=== PATIENT | female | born 1995 | race Caucasian/White ===

== ENCOUNTER 2018-10-01 22:46 | Inpatient (IN) | payer BC ==
[2018-10-02] MEDS ORDERED: Lidocaine 1% 50 ML MDV INJECT PRN (00:09)
[2018-10-02] MEDS ORDERED: Methylergonovine 0.2 MG/1 ML Amp IM PRN (00:09)
[2018-10-02] MEDS ORDERED: Nalbuphine 10 MG/1 ML Vial IVPUSH PRN (00:09)
[2018-10-02] MEDS ORDERED: Sodium Chloride 0.9% 10 ML Syringe FLUSH PRN (00:09)
[2018-10-02] MEDS ORDERED: Water For Irrigation,Sterile 1,000 ML Container IRR PRN (00:09)
[2018-10-02] MEDS ORDERED: Carboprost Tromethamine 250 MCG/1 ML Amp IM PRN (00:09)
[2018-10-02] MEDS ORDERED: Misoprostol 200 MCG Tab PO PRN (00:09)
[2018-10-02] MEDS ORDERED: Sodium Chloride 0.9% 2.5 ML Syringe FLUSH PRN (00:09)
[2018-10-02] MEDS ORDERED: Ondansetron 4 MG/2 ML SDV IV PRN (00:09)
[2018-10-02] MEDS ORDERED: Tranexamic Acid 1,000 MG in Sodium Chloride 0.9% 100 ML IV PRN (00:09)
[2018-10-02] MEDS ORDERED: Butorphanol 1 MG/ML SDV IVPUSH PRN (00:09)
[2018-10-02] MEDS ORDERED: Terbutaline 1 MG/ML SDV SUBCUT PRN (00:09)
[2018-10-02] MEDS ORDERED: Oxytocin/0.9 % Sodium Chloride 30 UNIT/500 ML BAG IV SCH (00:15)
[2018-10-02] MEDS: Lactated Ringers 1,000 ML IV SCH ×3 (03:05→05:36)
--- NOTE | 2018-10-02 03:49 | PCM.PREANE ---
Preanesthetic Assessment - Anesthesia/Transfusion/Family Hx Anesthesia History: No Prior Anesthesia Transfusion History: No Prior Transfusion(s) Intubation History: Unknown - Review of Systems General: No Symptoms Pulmonary: No Symptoms Cardiovascular: No Symptoms Gastrointestinal: No Symptoms Neurological: No Symptoms Other: Reports: None - Physical Assessment Height: 5 ft 6 in Weight: 83.915 kg ASA Class: 2 Mental Status: Alert & Oriented x3 Airway Class: Mallampati = 2 Dentition: Reports: Normal Dentition Thyro-Mental Finger Breadths: 3 Mouth Opening Finger Breadths: 3 ROM/Head Extension: Full Lungs: Clear to Auscultation, Normal Respiratory Effort Cardiovascular: Regular Rate, Regular Rhythm - Lab Values: Laboratory Last Values WBC 12.80 K/uL (4.0-11.0) H 10/02/18 00:29 RBC 4.07 M/uL (4.30-5.90) L 10/02/18 00:29 Hgb 11.2 g/dL (12.0-16.0) L 10/02/18 00:29 Hct 33.8 % (36.0-46.0) L 10/02/18 00:29 MCV 83.0 fL (80.0-98.0) 10/02/18 00:29 MCH 27.5 pg (27.0-32.0) 10/02/18 00:29 MCHC 33.1 g/dL (31.0-37.0) 10/02/18 00:29 RDW Std Deviation 41.7 fl (28.0-62.0) 10/02/18 00:29 RDW Coeff of Anna Marie 14 % (11.0-15.0) 10/02/18 00:29 Plt Count 269 K/uL (150-400) 10/02/18 00:29 MPV 9.70 fL (7.40-12.00) 10/02/18 00:29 Nucleated RBC % 0.0 /100WBC 10/02/18 00:29 Nucleated RBCs # 0 K/uL 10/02/18 00:29 Blood Type B POSITIVE 10/02/18 00:29 Antibody Screen NEGATIVE 10/02/18 00:29 - Allergies Allergies/Adverse Reactions: Allergies Allergy/AdvReac Type Severity Reaction Status Date / Time acetaminophen [From Vicodin] Allergy Unknown Unknown Verified 10/02/18 03:49 hydrocodone [From Vicodin] Allergy Unknown Unknown Verified 10/02/18 03:49 Sulfa (Sulfonamide Allergy Diarrhea Verified 10/02/18 03:24 Antibiotics) feminine hygiene products Allergy Unknown Unknown Uncoded 10/02/18 03:49 sour candy Allergy Unknown Unknown Uncoded 10/02/18 03:49 - Acknowledgements Anesthesia Type Planned: Epidural Pt an Appropriate Candidate for the Planned Anesthesia: Yes Alternatives and Risks of Anesthesia Discussed w Pt/Guardian: Yes Pt/Guardian Understands and Agrees with Anesthesia Plan: Yes PreAnesthesia Questionnaire - Past Health History Medical/Surgical History: Denies Medical/Surgical History HEENT History: Reports: None Cardiovascular History: Reports: None Respiratory History: Reports: None Gastrointestinal History: Reports: GERD Genitourinary History: Reports: None 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 Para: 1 LMP (Approximate): Musculoskeletal History: Reports: None Neurological History: Reports: None Psychiatric History: Reports: None Endocrine/Metabolic History: Reports: None Hematologic History: Reports: None Immunologic History: Reports: None Oncologic (Cancer) History: Reports: None Dermatologic History: Reports: None - Infectious Disease History Infectious Disease History: Reports: None - SUBSTANCE USE Smoking Status *Q: Former Smoker Second Hand Smoke Exposure: No Recreational Drug Use History: No - CURRENT (IN HOUSE) MEDS Current Meds: Current Medications Butorphanol Tartrate (Stadol) 1 mg IVPUSH Q1H PRN PRN Reason: Pain Carboprost Tromethamine (Hemabate Ds) 250 mcg IM ASDIRECTED PRN PRN Reason: Post Hemorrhage Tranexamic Acid 1,000 mg/ (Sodium Chloride) 110 mls @ 660 mls/hr IV ONETIME PRN PRN Reason: Bleeding Lactated Ringer's (Ringers, Lactated) 1,000 mls @ 150 mls/hr IV ASDIRECTED ELLY Last Admin: 10/02/18 03:41 Dose: 150 mls/hr Oxytocin/Sodium Chloride (Oxytocin 30 Unit/500 Ml-Ns) 30 unit in 500 mls @ 999 mls/hr IV TITRATE ELLY Oxytocin/Sodium Chloride (Oxytocin 30 Unit/500 Ml-Ns) 30 unit in 500 mls @ 2 mls/hr IV TITRATE ELLY; Protocol Lidocaine HCl (Xylocaine 1%) 50 ml INJECT ONETIME PRN PRN Reason: Laceration repair Methylergonovine Maleate (Methergine) 0.2 mg IM ASDIRECTED PRN PRN Reason: Post Hemorrhage Misoprostol (Cytotec) 200 mcg PO ONETIME PRN PRN Reason: Post Hemorrhage Nalbuphine HCl (Nubain) 10 mg IVPUSH Q1H PRN PRN Reason: Pain (severe 7-10) Ondansetron HCl (Zofran) 4 mg IV Q6H PRN PRN Reason: Nausea/Vomiting Sodium Chloride (Saline Flush) 10 ml FLUSH ASDIRECTED PRN PRN Reason: Keep Vein Open Sodium Chloride (Saline Flush) 2.5 ml FLUSH ASDIRECTED PRN PRN Reason: Keep Vein Open Sterile Water (Sterile Water For Irrigation) 1,000 ml IRR ASDIRECTED PRN PRN Reason: delivery Terbutaline Sulfate (Brethine) 0.25 mg SUBCUT ASDIRECTED PRN PRN Reason: Tacysystole
[2018-10-02] MEDS ORDERED: Lidocaine HCl/EPINEPHrine 5 ML IJ ONE (03:51)
[2018-10-02] MEDS ORDERED: Bupivacaine 0.25% 10 ML SDV ONE (04:38)
[2018-10-02] MEDS: Oxytocin/0.9 % Sodium Chloride 30 UNIT/500 ML BAG IV SCH ×2 (12:26→20:00)
[2018-10-02] MEDS ORDERED: Witch Hazel Medicated Pads 40/Jar TOP PRN (13:01)
[2018-10-02] MEDS ORDERED: oxyCODONE 5 MG Tab PO PRN (13:01)
[2018-10-02] MEDS ORDERED: Docusate Sodium 100 MG Cap PO PRN (13:01)
[2018-10-02] MEDS ORDERED: Acetaminophen 500 MG Tab PO PRN (13:01)
[2018-10-02] MEDS ORDERED: Ibuprofen 400 MG Tab PO PRN (13:01)
[2018-10-02] MEDS ORDERED: Bisacodyl 10 MG Supp RECTAL PRN (13:01)
[2018-10-02] MEDS ORDERED: Lanolin 100% Cream 7 GM Tube TOP PRN (13:01)
[2018-10-02] MEDS ORDERED: Benzocaine/Menthol 20%-0.5% Spray 78 GM Cannister TOP PRN (13:01)
--- NOTE | 2018-10-02 13:08 | PCM.DEL ---
L & D Note - General Info Date of Service: 10/02/18 Mother's Due Date: 10/02/18 - Delivery Note Labor: Augmented by Oxytocin Delivery Outcome: Livebirth Infant Delivery Method: Spontaneous Vaginal Delivery-Single Presentation: Left Occiput Anterior (KATHARINA) Nuchal Cord: None Anesthesia Type: Epidural Amniotic Fluid Description: Clear Episiotomy Type: None Laceration: Periurethral Placenta: Intact Cord: 3 Vessels Estimated Blood Loss: 200 Resuscitation Needed: No Score 1 min: 7 Score 5 min: 8 Delivery Comments (Free Text/Narrative):: Live female delivered 1225 , 7/8 , weight 4080g - General Info Date of Service: 10/02/18 - Patient Data Weight - Most Recent: 83.915 kg Lab Results Last 24 Hours: Laboratory Results - last 24 hr 10/02/18 10/02/18 Range/Units 00:29 00:29 WBC 12.80 H (4.0-11.0) K/uL RBC 4.07 L (4.30-5.90) M/uL Hgb 11.2 L (12.0-16.0) g/dL Hct 33.8 L (36.0-46.0) % MCV 83.0 (80.0-98.0) fL MCH 27.5 (27.0-32.0) pg MCHC 33.1 (31.0-37.0) g/dL RDW Std Deviation 41.7 (28.0-62.0) fl RDW Coeff of Anna Marie 14 (11.0-15.0) % Plt Count 269 (150-400) K/uL MPV 9.70 (7.40-12.00) fL Nucleated RBC % 0.0 /100WBC Nucleated RBCs # 0 K/uL Blood Type B POSITIVE Antibody Screen NEGATIVE Med Orders - Current: Current Medications Carboprost Tromethamine (Hemabate Ds) 250 mcg IM ASDIRECTED PRN PRN Reason: Post Hemorrhage Tranexamic Acid 1,000 mg/ (Sodium Chloride) 110 mls @ 660 mls/hr IV ONETIME PRN PRN Reason: Bleeding Lactated Ringer's (Ringers, Lactated) 1,000 mls @ 150 mls/hr IV ASDIRECTED ELLY Last Admin: 10/02/18 05:36 Dose: 150 mls/hr Oxytocin/Sodium Chloride (Oxytocin 30 Unit/500 Ml-Ns) 30 unit in 500 mls @ 999 mls/hr IV TITRATE ELLY Last Admin: 10/02/18 12:26 Dose: 999 mls/hr Oxytocin/Sodium Chloride (Oxytocin 30 Unit/500 Ml-Ns) 30 unit in 500 mls @ 2 mls/hr IV TITRATE ELLY; Protocol Last Titration: 10/02/18 12:26 Dose: 0 munits/min, 0 mls/hr Lidocaine HCl (Xylocaine 1%) 50 ml INJECT ONETIME PRN PRN Reason: Laceration repair Methylergonovine Maleate (Methergine) 0.2 mg IM ASDIRECTED PRN PRN Reason: Post Hemorrhage Misoprostol (Cytotec) 200 mcg PO ONETIME PRN PRN Reason: Post Hemorrhage Ondansetron HCl (Zofran) 4 mg IV Q6H PRN PRN Reason: Nausea/Vomiting Sodium Chloride (Saline Flush) 10 ml FLUSH ASDIRECTED PRN PRN Reason: Keep Vein Open Sodium Chloride (Saline Flush) 2.5 ml FLUSH ASDIRECTED PRN PRN Reason: Keep Vein Open Sterile Water (Sterile Water For Irrigation) 1,000 ml IRR ASDIRECTED PRN PRN Reason: delivery Terbutaline Sulfate (Brethine) 0.25 mg SUBCUT ASDIRECTED PRN PRN Reason: Tacysystole Discontinued Medications Bupivacaine HCl (Sensorcaine-Mpf 0.25%) Confirm Administered Dose 10 ml .ROUTE .STK-MED ONE Stop: 10/02/18 04:39 Butorphanol Tartrate (Stadol) 1 mg IVPUSH Q1H PRN PRN Reason: Pain Fentanyl/Bupivacaine HCl (Gmicruwz-Mekcq-Qs 2 Mcg/Ml-0.125%) Confirm Administered Dose 100 mls @ as directed .ROUTE .STK-MED ONE Stop: 10/02/18 03:52 Lidocaine/Epinephrine (Lidocaine 1.5%-Epi 1:200,000) Confirm Administered Dose 5 ml IJ .STK-MED ONE Stop: 10/02/18 03:52 Nalbuphine HCl (Nubain) 10 mg IVPUSH Q1H PRN PRN Reason: Pain (severe 7-10) - Problem List & Annotations (1) Vaginal delivery SNOMED Code(s): 712478575 Code(s): O80 - ENCOUNTER FOR FULL-TERM UNCOMPLICATED DELIVERY Status: Acute Current Visit: Yes - Problem List Review Problem List Initiated/Reviewed/Updated: Yes - My Orders Last 24 Hours: My Active Orders 10/02/18 13:01 Patient Status [ADT] Routine May Shower [RC] ASDIRECTED Up ad Jessica [RC] ASDIRECTED Vital Signs [RC] PER UNIT ROUTINE Acetaminophen [Tylenol Extra Strength] 1,000 mg PO Q4H PRN Acetaminophen [Tylenol Extra Strength] 500 mg PO Q4H PRN Benzocaine/Menthol [Dermoplast Pain Relief 20%-0.5% [place]] 78 gm TOP ASDIRECTED PRN Bisacodyl [Dulcolax] 10 mg RECTAL ONETIME PRN Docusate Sodium [Colace] 100 mg PO BID PRN Ibuprofen [Motrin] 400 mg PO Q4H PRN Ibuprofen [Motrin] 800 mg PO Q6H PRN Lanolin [Lansinoh HPA] See Dose Instructions TOP ASDIRECTED PRN Witch Concepcion [Tucks] 1 pad TOP ASDIRECTED PRN oxyCODONE 5 mg PO Q2H PRN Assess Lochia [WOMSER] Per Unit Routine Assess Uterine Involution [WOMSER] Per Unit Routine Peripheral IV Discontinue [OM.PC] Routine Resuscitation Status Routine 10/03/18 05:11 HEMOGLOBIN/HEMATOCRIT,HH [HEME] Timed
[2018-10-02] MEDS: Ibuprofen 800 MG Tab PO PRN (16:33)
[2018-10-02] MEDS: Acetaminophen 500 MG Tab PO PRN (20:00)
--- NOTE | 2018-10-03 03:32 | OR ---
SURGEON: RAVI THOMAS DATE OF PROCEDURE: 10/02/2018 PREOPERATIVE DIAGNOSIS: A 23-year-old, 2, para 1, at 40 weeks, admitted with spontaneous rupture of membranes, group B Streptococcus negative. POSTOPERATIVE DIAGNOSIS: A 23-year-old, 2, para 1, at 40 weeks, admitted with spontaneous rupture of membranes, group B Streptococcus negative. PROCEDURE: Normal spontaneous vaginal delivery. ESTIMATED BLOOD LOSS: 200. INTRAVENOUS FLUID: Pitocin and NS. ANESTHESIA: Epidural. NOTES AND FINDING: Was a live female delivered at 12:25. scores 7 and 8. Weight is 4030 g. BRIEF HISTORY ABOUT THE PATIENT: She came in complaining of leakage of fluid, rupture of membranes, and contractions. She was found to be about 4 cm dilated. She may change to 5. When I reexamined her, she was about 5 to 6. Pitocin was started. She had a normal labor curve. She became fully dilated. With the patient being fully dilated, she was encouraged to push. DESCRIPTION OF PROCEDURE: With good patient effort, baby delivered the head subsequently by the anterior and posterior shoulder, body of the was delivered. The baby was placed on the maternal abdomen. Delayed cord clamping was observed. The placenta was delivered via controlled cord traction. After delivery of the placenta, the perineum was inspected. A small periurethral laceration was noted which was hemostatic. The perineum was washed. All instrument and pad counts were correct x2. The patient was left in the Labor and Delivery room in stable condition. The patient received Pitocin, NS after delivery of the anterior shoulder. GALI RYAN /[id number] MTDReg
--- NOTE | 2018-10-03 06:19 | PCM48HPAN ---
Post Anesthesia Note - EVALUATION WITHIN 48HRS OF ANESTHETIC Vital Signs in Normal Range: Yes Patient Participated in Evaluation: Yes Respiratory Function Stable: Yes Airway Patent: Yes Cardiovascular Function Stable: Yes Hydration Status Stable: Yes Pain Control Satisfactory: Yes Nausea and Vomiting Control Satisfactory: Yes Mental Status Recovered: Yes Resp Rate: 18 - COMMENTS/OBSERVATIONS Free Text/Narrative:: The patient had no apparent anesthetic complications at this time. Denies headache at this time, n/v, and there were no apparent anesthetic complications at this time.
[2018-10-03] MEDS: Ibuprofen 800 MG Tab PO PRN (07:54)
--- NOTE | 2018-10-03 08:13 | PCM.PNPP ---
<Bryanna Alegre - Last Filed: 10/03/18 08:10> - General Info Date of Service: 10/03/18 Functional Status: Reports: Pain Controlled, Tolerating Diet, Ambulating, Urinating - Review of Systems General: Denies: Fever, Weakness, Fatigue Pulmonary: Denies: Shortness of Breath, Pleuritic Chest Pain, Cough Cardiovascular: Denies: Chest Pain, Palpitations, Dyspnea on Exertion Gastrointestinal: Denies: Abdominal Pain Genitourinary: Denies: Dysuria - General Info Date of Service: 10/03/18 - Patient Data Vital Signs - Most Recent: Last Vital Signs Temp 36.2 C 10/03/18 03:55 Pulse 100 10/03/18 03:55 Resp 18 10/03/18 06:19 BP 115/56 L 10/03/18 03:55 Pulse Ox 98 10/03/18 03:55 Weight - Most Recent: 185 lb Lab Results - Last 24 Hours: Laboratory Results - last 24 hr 10/03/18 Range/Units 04:43 Hgb 9.0 L (12.0-16.0) g/dL Hct 27.7 L (36.0-46.0) % Med Orders - Current: Current Medications Acetaminophen (Tylenol Extra Strength) 500 mg PO Q4H PRN PRN Reason: Pain Acetaminophen (Tylenol Extra Strength) 1,000 mg PO Q4H PRN PRN Reason: Pain Last Admin: 10/02/18 20:00 Dose: 1,000 mg Benzocaine/Menthol (Dermoplast Pain Relief 20%-0.5% [place]) 78 gm TOP ASDIRECTED PRN PRN Reason: Perineal Comfort Measure Bisacodyl (Dulcolax) 10 mg RECTAL ONETIME PRN PRN Reason: Constipation Carboprost Tromethamine (Hemabate Ds) 250 mcg IM ASDIRECTED PRN PRN Reason: Post Hemorrhage Docusate Sodium (Colace) 100 mg PO BID PRN PRN Reason: Constipation Emollient Ointment (Lansinoh Hpa) 0 gm TOP ASDIRECTED PRN PRN Reason: Sore Nipples Tranexamic Acid 1,000 mg/ (Sodium Chloride) 110 mls @ 660 mls/hr IV ONETIME PRN PRN Reason: Bleeding Lactated Ringer's (Ringers, Lactated) 1,000 mls @ 150 mls/hr IV ASDIRECTED ELLY Last Admin: 10/02/18 05:36 Dose: 150 mls/hr Oxytocin/Sodium Chloride (Oxytocin 30 Unit/500 Ml-Ns) 30 unit in 500 mls @ 999 mls/hr IV TITRATE ELLY Last Admin: 10/02/18 20:00 Dose: 999 mls/hr Oxytocin/Sodium Chloride (Oxytocin 30 Unit/500 Ml-Ns) 30 unit in 500 mls @ 2 mls/hr IV TITRATE ELLY; Protocol Last Titration: 10/02/18 12:26 Dose: 0 munits/min, 0 mls/hr Ibuprofen (Motrin) 400 mg PO Q4H PRN PRN Reason: Pain Ibuprofen (Motrin) 800 mg PO Q6H PRN PRN Reason: Pain Last Admin: 10/03/18 07:54 Dose: 800 mg Lidocaine HCl (Xylocaine 1%) 50 ml INJECT ONETIME PRN PRN Reason: Laceration repair Methylergonovine Maleate (Methergine) 0.2 mg IM ASDIRECTED PRN PRN Reason: Post Hemorrhage Misoprostol (Cytotec) 200 mcg PO ONETIME PRN PRN Reason: Post Hemorrhage Ondansetron HCl (Zofran) 4 mg IV Q6H PRN PRN Reason: Nausea/Vomiting Oxycodone HCl (Oxycodone) 5 mg PO Q2H PRN PRN Reason: Pain Sodium Chloride (Saline Flush) 10 ml FLUSH ASDIRECTED PRN PRN Reason: Keep Vein Open Sodium Chloride (Saline Flush) 2.5 ml FLUSH ASDIRECTED PRN PRN Reason: Keep Vein Open Sterile Water (Sterile Water For Irrigation) 1,000 ml IRR ASDIRECTED PRN PRN Reason: delivery Terbutaline Sulfate (Brethine) 0.25 mg SUBCUT ASDIRECTED PRN PRN Reason: Tacysystole Witch Concepcion (Tucks) 1 pad TOP ASDIRECTED PRN PRN Reason: comfort care Discontinued Medications Bupivacaine HCl (Sensorcaine-Mpf 0.25%) Confirm Administered Dose 10 ml .ROUTE .STK-MED ONE Stop: 10/02/18 04:39 Last Admin: 10/02/18 20:25 Dose: Not Given Butorphanol Tartrate (Stadol) 1 mg IVPUSH Q1H PRN PRN Reason: Pain Fentanyl/Bupivacaine HCl (Ucaerefh-Cujmm-Ow 2 Mcg/Ml-0.125%) Confirm Administered Dose 100 mls @ as directed .ROUTE .STK-MED ONE Stop: 10/02/18 03:52 Last Admin: 10/02/18 20:25 Dose: Not Given Lidocaine/Epinephrine (Lidocaine 1.5%-Epi 1:200,000) Confirm Administered Dose 5 ml IJ .STK-MED ONE Stop: 10/02/18 03:52 Last Admin: 10/02/18 20:25 Dose: Not Given Nalbuphine HCl (Nubain) 10 mg IVPUSH Q1H PRN PRN Reason: Pain (severe 7-10) - Interaction Disposition, : in Room with Family Infant Interaction: Holding Infant Infant Feeding: Breastfed Infant; Nursed Well Support Person: - Recovery Exam Fundal Tone: Firm Fundal Level: At Umbilicus Fundal Placement: Midline Lochia Amount: Scant Lochia Color: Rubra/Red Perineum Description: Intact, Minimal Bruising/Swelling Episiotomy/Laceration: None Bladder Status: Voiding Urinary Elimination: Voided - Exam General: Alert, Oriented Neck: Supple Lungs: Clear to Auscultation, Normal Respiratory Effort Cardiovascular: Regular Rate, Regular Rhythm GI/Abdominal Exam: Normal Bowel Sounds, Soft, Non-Tender, No Distention Extremities: Normal Inspection, Normal Range of Motion, Non-Tender (trace), Normal Capillary Refill, Pedal Edema Skin: Warm, Dry, Intact - Problem List & Annotations (1) Vaginal delivery SNOMED Code(s): 666175233 Code(s): O80 - ENCOUNTER FOR FULL-TERM UNCOMPLICATED DELIVERY Status: Acute Current Visit: Yes - Problem List Review Problem List Initiated/Reviewed/Updated: Yes - Assessment Assessment:: PPD# 1 s/p , Minimal pain and lochia. Breast feeding well. Discharge home today. - Plan Plan:: Discharge home today. Pelvic rest for 6 weeks. Can use OTC ibuprofen/tylenol as needed for pain. Instructed patient to call if she develops fever greater than 101 or bleeding through a large pad an hour. F/U with [facility] in 6 weeks. <Maria Elena Roberts - Last Filed: 10/03/18 09:06> - Patient Data Vital Signs - Most Recent: Last Vital Signs Temp 36.2 C 10/03/18 03:55 Pulse 100 10/03/18 03:55 Resp 18 10/03/18 06:19 BP 115/56 L 10/03/18 03:55 Pulse Ox 98 10/03/18 03:55 Lab Results - Last 24 Hours: Laboratory Results - last 24 hr 10/03/18 Range/Units 04:43 Hgb 9.0 L (12.0-16.0) g/dL Hct 27.7 L (36.0-46.0) % Med Orders - Current: Current Medications Acetaminophen (Tylenol Extra Strength) 500 mg PO Q4H PRN PRN Reason: Pain Acetaminophen (Tylenol Extra Strength) 1,000 mg PO Q4H PRN PRN Reason: Pain Last Admin: 10/02/18 20:00 Dose: 1,000 mg Benzocaine/Menthol (Dermoplast Pain Relief 20%-0.5% [place]) 78 gm TOP ASDIRECTED PRN PRN Reason: Perineal Comfort Measure Bisacodyl (Dulcolax) 10 mg RECTAL ONETIME PRN PRN Reason: Constipation Carboprost Tromethamine (Hemabate Ds) 250 mcg IM ASDIRECTED PRN PRN Reason: Post Hemorrhage Docusate Sodium (Colace) 100 mg PO BID PRN PRN Reason: Constipation Emollient Ointment (Lansinoh Hpa) 0 gm TOP ASDIRECTED PRN PRN Reason: Sore Nipples Tranexamic Acid 1,000 mg/ (Sodium Chloride) 110 mls @ 660 mls/hr IV ONETIME PRN PRN Reason: Bleeding Lactated Ringer's (Ringers, Lactated) 1,000 mls @ 150 mls/hr IV ASDIRECTED ELLY Last Admin: 10/02/18 05:36 Dose: 150 mls/hr Oxytocin/Sodium Chloride (Oxytocin 30 Unit/500 Ml-Ns) 30 unit in 500 mls @ 999 mls/hr IV TITRATE ELLY Last Admin: 10/02/18 20:00 Dose: 999 mls/hr Oxytocin/Sodium Chloride (Oxytocin 30 Unit/500 Ml-Ns) 30 unit in 500 mls @ 2 mls/hr IV TITRATE [facility], [facility]; Protocol Last Titration: 10/02/18 12:26 Dose: 0 munits/min, 0 mls/hr Ibuprofen (Motrin) 400 mg PO Q4H PRN PRN Reason: Pain Ibuprofen (Motrin) 800 mg PO Q6H PRN PRN Reason: Pain Last Admin: 10/03/18 07:54 Dose: 800 mg Lidocaine HCl (Xylocaine 1%) 50 ml INJECT ONETIME PRN PRN Reason: Laceration repair Methylergonovine Maleate (Methergine) 0.2 mg IM ASDIRECTED PRN PRN Reason: Post Hemorrhage Misoprostol (Cytotec) 200 mcg PO ONETIME PRN PRN Reason: Post Hemorrhage Ondansetron HCl (Zofran) 4 mg IV Q6H PRN PRN Reason: Nausea/Vomiting Oxycodone HCl (Oxycodone) 5 mg PO Q2H PRN PRN Reason: Pain Sodium Chloride (Saline Flush) 10 ml FLUSH ASDIRECTED PRN PRN Reason: Keep Vein Open Sodium Chloride (Saline Flush) 2.5 ml FLUSH ASDIRECTED PRN PRN Reason: Keep Vein Open Sterile Water (Sterile Water For Irrigation) 1,000 ml IRR ASDIRECTED PRN PRN Reason: delivery Terbutaline Sulfate (Brethine) 0.25 mg SUBCUT ASDIRECTED PRN PRN Reason: Tacysystole Witch Concepcion (Tucks) 1 pad TOP ASDIRECTED PRN PRN Reason: comfort care Discontinued Medications Bupivacaine HCl (Sensorcaine-Mpf 0.25%) Confirm Administered Dose 10 ml .ROUTE .STK-MED ONE Stop: 10/02/18 04:39 Last Admin: 10/02/18 20:25 Dose: Not Given Butorphanol Tartrate (Stadol) 1 mg IVPUSH Q1H PRN PRN Reason: Pain Fentanyl/Bupivacaine HCl (Ovlybjhj-Ukhpq-Cf 2 Mcg/Ml-0.125%) Confirm Administered Dose 100 mls @ as directed .ROUTE .STK-MED ONE Stop: 10/02/18 03:52 Last Admin: 10/02/18 20:25 Dose: Not Given Lidocaine/Epinephrine (Lidocaine 1.5%-Epi 1:200,000) Confirm Administered Dose 5 ml IJ .STK-MED ONE Stop: 10/02/18 03:52 Last Admin: 10/02/18 20:25 Dose: Not Given Nalbuphine HCl (Nubain) 10 mg IVPUSH Q1H PRN PRN Reason: Pain (severe 7-10) - My Orders Last 24 Hours: My Active Orders 10/03/18 Breakfast Regular Diet [DIET] - Assessment Assessment:: Patient seen and evaluated independently- agree with above - Plan Plan:: Patient may be discharged home today. S/S of depression were reviewed and encouraged to call with any concerns
[2018-10-03] MEDS: Acetaminophen 500 MG Tab PO PRN (09:58)
== END 2018-10-03 15:40 | disposition home or self-care (01) | DRG 560 ==
LOC: MW.OBCHECK 22:46 → MW.OB 22:53 → MW.OBCHECK 10-02 00:10 → MW.OB 10-02 00:10 → OBSVTOIN 10-02 12:25 → MW.OB 10-02 21:50
PROVIDERS: ADMIT Obstetrics & Gynecology; ATTEND Obstetrics & Gynecology
PROC: 10E0XZZ Delivery of Products of Conception, External Approach (ICD-10-PCS; principal; 2018-10-02)
PROC: 10H07YZ Insertion of Other Device into Products of Conception, Via Natural or Artificial Opening (ICD-10-PCS; principal; 2018-10-02)
PROC: 00HU33Z Insertion of Infusion Device into Spinal Canal, Percutaneous Approach (ICD-10-PCS; 2018-10-02)
PROC: 3E0R3BZ Introduction of Anesthetic Agent into Spinal Canal, Percutaneous Approach (ICD-10-PCS; 2018-10-02)
DX: O99.344 Other mental disorders complicating childbirth (principal); F41.9 Anxiety disorder, unspecified; F32.9 Major depressive disorder, single episode, unspecified; O71.82 Other specified trauma to perineum and vulva; Z37.0 Single live birth; Z3A.39 39 weeks gestation of pregnancy; O99.62 Diseases of the digestive system complicating childbirth; K21.9 Gastro-esophageal reflux disease without esophagitis; Z88.5 Allergy status to narcotic agent; Z88.2 Allergy status to sulfonamides; Z88.8 Allergy status to other drugs, medicaments and biological substances; Z91.018 Allergy to other foods
CPT/HCPCS: 36415; 51702; 59025; 59409; 85014; 85018; 85027; 86850; 86900; 86901; A9270-GY; J2590; J7120

== ENCOUNTER 2019-12-11 10:06 | Emergency (ER) | payer BC, OTHER ==
--- NOTE | 2019-12-11 10:41 | EDM.PDOC ---
ED HPI GENERAL MEDICAL PROBLEM - General Chief Complaint: Lower Extremity Injury/Pain Stated Complaint: INJURED RT FOOT Time Seen by Provider: 12/11/19 10:38 Source of Information: Reports: Patient History Limitations: Reports: No Limitations - History of Present Illness INITIAL COMMENTS - FREE TEXT/NARRATIVE: HISTORY AND PHYSICAL: History of present illness: Patient is a 24-year-old female presents to the ED with complaint of right foot injury. Patient states she fell off of a hover board last night landing on her foot wrong. She states she was initially able to put weight on her foot then this morning was unable to walk on it. She denies proximal ankle or knee injury or head injury. Review of systems: As per history of present illness and below otherwise all systems reviewed and negative. Past medical history: As per history of present illness and as reviewed below otherwise noncontributory. Surgical history: As per history of present illness and as reviewed below otherwise noncontributory. Social history: No reported history of drug or alcohol abuse. Family history: As per history of present illness and as reviewed below otherwise noncontributory. Physical exam: General: Patient sitting comfortably in no acute distress and nontoxic appearing HEENT: Atraumatic, normocephalic, pupils reactive, negative for conjunctival pallor or scleral icterus, mucous membranes moist, throat clear, neck supple, nontender, trachea midline. No meningeal signs. Extremities: No obvious swelling or deformity, skin is intact. Pain to palpation over the 4th and 5th metatarsals. negative for cords or calf pain. Neurovascular unremarkable. Neuro: Awake, alert, oriented. Cranial nerves II through XII unremarkable. Cerebellum unremarkable. Motor and sensory unremarkable throughout. Exam nonfocal. Notes: Diagnostics: x-ray right foot Therapeutics: post op shoe crutches Prescriptions: Diclofenac Impression: Right foot injury Plan: 1. Ice, elevate, and motrin or tylenol as needed 2. Follow up with orthopedics or podiatry, please call the number provided to schedule an appointment 3. Return to ED as needed as discussed Definitive disposition and diagnosis as appropriate pending reevaluation and review of above. right foot Pain Score (Numeric/FACES): 6 - Related Data Allergies Allergy/AdvReac Type Severity Reaction Status Date / Time acetaminophen [From Vicodin] Allergy Unknown Unknown Verified 12/11/19 10:44 hydrocodone [From Vicodin] Allergy Unknown Unknown Verified 12/11/19 10:44 Sulfa (Sulfonamide Allergy Diarrhea Verified 12/11/19 10:44 Antibiotics) feminine hygiene products Allergy Unknown Unknown Uncoded 12/11/19 10:44 sour candy Allergy Unknown Unknown Uncoded 12/11/19 10:44 Home Meds: Home Meds Diclofenac Sodium [Voltaren] 75 mg PO BIDMEALS #20 tab.cr 12/11/19 [Rx] Past Medical History - Past Health History Medical/Surgical History: Denies Medical/Surgical History HEENT History: Reports: None Cardiovascular History: Reports: None Respiratory History: Reports: None Gastrointestinal History: Reports: GERD Genitourinary History: Reports: None [employer] History: Reports: Musculoskeletal History: Reports: None Neurological History: Reports: None Psychiatric History: Reports: None Endocrine/Metabolic History: Reports: None Hematologic History: Reports: None Immunologic History: Reports: None Oncologic (Cancer) History: Reports: None Dermatologic History: Reports: None - Infectious Disease History Infectious Disease History: Reports: None Social & Family History - Caffeine Use Caffeine Use: Reports: Coffee, Soda Caffeine Use Comment: Just drink coffee occassionally Review of Systems - Review of Systems Review Of Systems: Comprehensive ROS is negative, except as noted in HPI. ED EXAM, GENERAL - Physical Exam Exam: See Below (see dictation) Course - Vital Signs Last Recorded V/S: Last Vital Signs Temp 97.3 F 12/11/19 10:10 Pulse 84 12/11/19 10:10 Resp 16 12/11/19 10:10 BP 117/74 12/11/19 10:10 Pulse Ox 96 12/11/19 10:10 - Orders/Labs/Meds Orders: Active Orders 24 hr Category Date Time Status DME for Discharge [COMM] Stat Oth 12/11/19 10:57 Ordered Departure - Departure Time of Disposition: 11:01 Disposition: Home, Self-Care 01 Condition: Good Clinical Impression: Right foot injury - Discharge Information Prescriptions: Diclofenac Sodium [Voltaren] 75 mg PO BIDMEALS #20 tab.cr Referrals: PCP,None [Primary Care Provider] - Forms: ED Department Discharge Additional Instructions: The following information is given to patients seen in the emergency department who are being discharged to home. This information is to outline your options for follow-up care. We provide all patients seen in our emergency department with a follow-up referral. The need for follow-up, as well as the timing and circumstances, are variable depending upon the specifics of your emergency department visit. If you don't have a primary care physician on staff, we will provide you with a referral. We always advise you to contact your personal physician following an emergency department visit to inform them of the circumstance of the visit and for follow-up with them and/or the need for any referrals to a consulting specialist. The emergency department will also refer you to a specialist when appropriate. This referral assures that you have the opportunity for follow-up care with a specialist. All of these measure are taken in an effort to provide you with optimal care, which includes your follow-up. Under all circumstances we always encourage you to contact your private physician who remains a resource for coordinating your care. When calling for follow-up care, please make the office aware that this follow-up is from your recent emergency room visit. If for any reason you are refused follow-up, please contact the [facility] Emergency Department at and asked to speak to the emergency department charge nurse. [facility] [address] [place] [address] [place] [address] [facility] Professional [facility] [address] [place] [address], [address] [place] [address] [facility] [address] [place] [address] 1. Ice, elevate, and motrin or tylenol as needed 2. Follow up with orthopedics or podiatry, please call the number provided to schedule an appointment 3. Return to ED as needed as discussed Sepsis Event Note - Focused Exam Vital Signs: Vital Signs Temp Pulse Resp BP Pulse Ox 12/11/19 10:10 97.3 F 84 16 117/74 96 Date Exam was Performed: 12/11/19 Time Exam was Performed: 11:01 - My Orders Last 24 Hours: My Active Orders 12/11/19 10:57 DME for Discharge [COMM] Stat - Assessment/Plan Last 24 Hours: My Active Orders 12/11/19 10:57 DME for Discharge [COMM] Stat
--- NOTE | 2019-12-11 10:53 | CR ---
Right foot: 2 views of the right foot were obtained. Comparison: No prior right foot study is available. No fracture or other bony abnormality is identified. Impression: 1. No abnormality is appreciated on 2 view right foot exam. Diagnostic code #1 This report was dictated in MDT
== END 2019-12-11 11:32 | disposition home or self-care (01) ==
LOC: MW.ED 10:06
DX: S99.921A Unspecified injury of right foot, initial encounter (principal); Z88.5 Allergy status to narcotic agent; Z88.6 Allergy status to analgesic agent; Z88.2 Allergy status to sulfonamides; Z91.018 Allergy to other foods
CPT/HCPCS: 73620-26-RT; 73620-RT; 99283; 99283-25